=== PATIENT | female | born 1930 | race Caucasian/White ===

== ENCOUNTER → 2017-12-25 | Outpatient (CLI) | payer MEDICARE ==
[~2017-12-25] MED LIST: ALLO100T30 PO; AMLO5TAB2 PO; BISA10SU54 PR; CHOL500045 PO; CLON0.1T PO; DIGO125T PO; DILT30TA33 PO; DIPH25CA61 PO; DOCU-131 PO; ENOX30SY4 SQ; FURO-92 PO; FURO-93 PO; HYDR-2442 PO; HYDR-3240 PO; HYDR-3307 PO; LEVO150T PO; MAG355OR14 PO; MAGN400O7 PO; MELO15TA24 PO; OLME40TA12 PO; ONDA4TAB10 PO; PANT40TA3 PO; POTA20TA6 PO; SENN-31 PO; SOLI10TA2 PO; TRAM50TA2 PO; benicar PO
== END ==
LOC: CFH 15:20
PROVIDERS: ATTEND Family Medicine
DX: I67.82 Cerebral ischemia (principal); R90.82 White matter disease, unspecified
CPT/HCPCS: 70450